=== PATIENT | female | born 1935 | race Two or more races ===

== ENCOUNTER 2018-05-02 11:21 | Outpatient (CLI) | payer OTHER | END 2018-05-02 11:30 | disposition home or self-care (01) | LOC: RAD 501 11:21 | DX: M48.02 Spinal stenosis, cervical region (principal); M75.21 Bicipital tendinitis, right shoulder ==

== ENCOUNTER 2018-05-24 13:49 | Outpatient (CLI) | payer OTHER | END 2018-05-24 13:58 | disposition home or self-care (01) | LOC: RAD 501 13:49 | DX: M54.5 Low back pain (principal); M54.6 Pain in thoracic spine ==

== ENCOUNTER 2019-01-13 08:51 | Outpatient (CLI) | payer OTHER | END 2019-01-13 08:59 | disposition home or self-care (01) | LOC: LAB 08:51 | DX: K52.1 Toxic gastroenteritis and colitis (principal) ==

== ENCOUNTER 2019-01-20 08:58 | Outpatient (CLI) | payer OTHER | END 2019-01-20 09:30 | disposition home or self-care (01) | LOC: TOM 08:58 | DX: R63.4 Abnormal weight loss (principal); R10.33 Periumbilical pain | CPT/HCPCS: 74177; Q9965 ==

== ENCOUNTER 2019-03-12 12:05 | Emergency (ER) | payer OTHER ==
[~2019-03-12] VITALS: Ht 152.4 cm; Wt 45.4 kg
[2019-03-12] MEDS ORDERED: TOPROL XL25 M1 (12:28)
[2019-03-12] MEDS ORDERED: PCCA T4 SODIUM D1 GM MC (12:28)
== END 2019-03-12 15:37 | disposition home or self-care (01) ==
LOC: ER 12:05
DX: S01.02XA Laceration with foreign body of scalp, initial encounter (principal); R07.89 Other chest pain; W26.8XXA Contact with other sharp object(s), not elsewhere classified, initial encounter; Y93.89 Activity, other specified; Y92.018 Other place in single-family (private) house as the place of occurrence of the external cause; Y99.8 Other external cause status

== ENCOUNTER 2019-03-20 07:36 | Emergency (ER) | payer OTHER ==
[~2019-03-20] VITALS: Ht 142.2 cm; Wt 45.4 kg
[~2019-03-20 07:36] MED LIST: PCCA T4 SODIUM D1 GM MC; TOPROL XL25 M1
== END 2019-03-20 09:38 | disposition home or self-care (01) ==
LOC: ER 07:36
DX: Z48.02 Encounter for removal of sutures (principal)

== ENCOUNTER 2019-11-25 16:12 | Emergency (ER) | payer OTHER ==
[~2019-11-25] VITALS: Ht 152.4 cm; Wt 45.4 kg
[~2019-11-25 16:12] MED LIST changes: +AMLODIPINE-OLM1 EAC2; +KEPPRA XR500 MG PO; +NABUMETONE500 MG PO; +SYNTHROID50 MCG PO; +TOPROL XL100 M1 PO
[2019-11-25] MEDS ORDERED: SYNTHROID (16:58)
== END 2019-11-25 19:30 | disposition home or self-care (01) ==
LOC: ER 16:12
DX: S00.03XA Contusion of scalp, initial encounter (principal); G40.802 Other epilepsy, not intractable, without status epilepticus; M54.2 Cervicalgia; R40.4 Transient alteration of awareness; W18.09XA Striking against other object with subsequent fall, initial encounter; Y93.89 Activity, other specified; Y92.018 Other place in single-family (private) house as the place of occurrence of the external cause; Y99.8 Other external cause status

== ENCOUNTER 2022-07-28 12:24 | Outpatient (CLI) | payer OTHER ==
[~2022-07-28 12:24] MED LIST changes: +SYNTHROID
== END 2022-07-28 12:32 | disposition home or self-care (01) ==
LOC: RAD 12:24
PROVIDERS: ATTEND Internal Medicine Gastroenterology
DX: R05.9 Cough, unspecified (principal); R13.0 Aphagia